=== PATIENT | male | born 1970 | race Caucasian/White ===

== ENCOUNTER 2016-11-02 16:01 | Emergency (ER) | payer OTHER ==
[~2016-11-02] VITALS: Ht 177.8 cm; Wt 75.0 kg
[~2016-11-02 16:01] MED LIST: AZIT250T94 PO; HYDR-3498 PO; IBUP-1542 PO; PROM6.25 PO; UDROBDM PO
[2016-11-02 16:14] VITALS: Ht 177.8 cm; Wt 75.0 kg
--- NOTE | 2016-11-02 17:18 | ERD ---
ER Documentation Chief Complaint Date/Time DATE: 11/02/16 TIME: 17:14 Chief Complaint LT LEG PAIN X 2 WEEKS , SENT BY PMD TO R/O DVT HPI This 46 year old male who presents to emergency department today complaining of some left flank pain for the past 2 weeks. Patient was seen by his primary care physician today and was sent here to the emergency department to rule out a DVT. States he is also given medication to treat a possible infection. She has had pain in his leg in the past after a accident. Patient denies any fevers or chills. Denies any new trauma. ROS All systems reviewed and are negative except as per history of present illness. Medications Home Meds Active Scripts Hydrocodone Bit-Acetaminophen* ([place]*) 5-325 Mg Tab, 1 TAB PO Q6 Y for PAIN, # 10 TAB Prov:FRANSICO GARCIA 02/10/16 Ibuprofen* (Motrin*) 600 Mg Tab, 600 MG PO Q6, #30 TAB Prov:FRANSICO GARCIA 02/10/16 Promethazine w/Codeine* (Phenergan w/Codeine* Syrup) 5 Ml Syrup, 10 ML PO Q4H Y for COUGH for 2 Days, ML Prov:MONICA BOOTH WATCHGUARD 11/27/15 Azithromycin* (Zithromax*) 250 Mg Tablet, 250 MG PO .ZPACK DIRECTED, #6 TAB TAKE 500 MG (2 TABS) THE FIRST DAY THEN 250 MG (1 TAB) DAYS 2-5 Prov:MONICA BOOTH WATCHGUARD 11/27/15 Guaifenesin-Dextromethorphan* (Robitussin* DM) 100MG/10MG/5ML Syrup, 10 ML PO Q4H Y for COUGH for 5 Days, ML Prov:MONICA BOOTH WATCHGUARD 11/08/15 Azithromycin* (Zithromax*) 250 Mg Tablet, 250 MG PO .ZPACK DIRECTED, #6 TAB TAKE 500 MG (2 TABS) THE FIRST DAY THEN 250 MG (1 TAB) DAYS 2-5 Prov:MONICA BOOTH WATCHGUARD 11/08/15 Allergies Allergies: Coded Allergies: No Known Allergy (Unverified , 01/06/15) PMhx/Soc History of Surgery: Yes (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 Neck: Full range of motion..~ No meningismus. Resp: Clear to auscultation bilaterally Cardio: Regular rate and rhythm, no murmurs Abd: Soft, non tender, non distended. Normal bowel sounds Skin: multiple areas of hyperpigmentation. Localized area of erythema anterior aspect left tibia approximately 6 cm. No streaking. Mild swelling. Pulses 2+. Distal neurovascularly intact. Back: No midline or flank tenderness Ext: No cyanosis, or edema Neur: Awake and alert Psych: Normal Mood and Affect Results 24 hrs DIAGNOSTIC IMAGING REPORT Patient: KARINA LUNA : 1970 Age: 46 Sex: M MR #: [id number] DOS: 11/02/16 0000 Ordering MD: BRAYAN DOMINGO PA-C Location: [facility] Room/Bed: PROCEDURE: US Lower extremity Venous. CLINICAL INDICATION: Pain and swelling TECHNIQUE: Multiple sonographic images of the left lower extremity deep venous system was obtained utilizing grayscale, color-flow, compressive sonography and doppler imaging with augmentation. The images were reviewed on a PACS workstation. COMPARISON: None. FINDINGS: There is normal compressibility and flow within the left common femoral, deep femoral, superficial femoral and popliteal veins. Normal phasicity and augmentation is identified Normal color flow and compressibility is noted in left posterior tibial and peroneal veins of the calf IMPRESSION: No sonographic evidence for left lower extremity deep venous thrombosis. RPTAT: HH .Francisco Javier Hairston MD, Date Time Electronically viewed and signed by .Francisco Javier Hairston MD, MD on 11/02/2016 17:46 .W/ CC: BRAYAN DOMINGO PA-C Procedures/[facility] This is a 46 year old male who presents to the emergency department today complaining of left leg pain for the past 2 weeks. Patient was seen by his primary care physician Dr. Prabhakar Young and and was sent here for further evaluation of DVT. I did obtain an ultrasound. Ultrasound left lower extremity shows no sonographic evidence for left lower extremity DVT. Patient does have some localized area of erythema and swelling. Patient was given a prescription for Keflex and Bactrim from his primary care physician today. I instructed the patient he needs to get that filled today to treat possible cellulitis. Patient is afebrile and otherwise well-appearing. I have low suspicion for sepsis, deep space infection. She denied any new trauma and I do not feel the patient requires an x-ray. Low suspicion for acute fracture dislocation. Patient may take his usual pain medication or medication prescribed by his primary care doctor. At this time the patient is stable for discharge and outpatient management. Patient should follow up with their PCP in the next 1-2 days. They may return to the emergency department sooner for any persistent or worsening of symptoms. Patient understood and agreed with the plan. Departure Diagnosis: Primary Impression: Pain of left leg Additional Impression: Cellulitis Site of cellulitis: extremity Site of cellulitis of extremity: lower extremity Laterality: left Qualified Code: L03.116 - Cellulitis of left lower extremity Condition: Fair BRAYAN DOMINGO PA-C Nov 02, 2016 17:17
--- NOTE | 2016-11-02 17:46 | RADRPT ---
PROCEDURE: US Lower extremity Venous. CLINICAL INDICATION: Pain and swelling TECHNIQUE: Multiple sonographic images of the left lower extremity deep venous system was obtained utilizing grayscale, color-flow, compressive sonography and doppler imaging with augmentation. The images were reviewed on a PACS workstation. COMPARISON: None. FINDINGS: There is normal compressibility and flow within the left common femoral, deep femoral, superficial f emoral and popliteal veins. Normal phasicity and augmentation is identified Normal color flow and compressibility is noted in left posterior tibial and peroneal veins of the ca lf IMPRESSION: No sonographic evidence for left lower extremity deep venous thrombosis. RPTAT: HH .Francisco Javier Hairston MD, MD Date Time Electronically viewed and signed by .Francisco Javier Hairston MD, on 11/02/2016 17:46 .W/
== END 2016-11-02 18:32 | disposition home or self-care (01) ==
LOC: FTE 16:01
DX: M79.605 Pain in left leg (principal); L03.116 Cellulitis of left lower limb; Z72.0 Tobacco use
CPT/HCPCS: 93971; Z7502

== ENCOUNTER 2016-12-29 10:57 | Emergency (ER) | payer SELFPAY ==
[~2016-12-29] VITALS: Ht 177.8 cm; Wt 78.0 kg
[2016-12-29 11:00] VITALS: Ht 177.8 cm; Wt 78.0 kg
[2016-12-29] MEDS ORDERED: AMOX1TAB10 PO (14:39)
[2016-12-29] MEDS ORDERED: NAPR-688 PO (14:39)
--- NOTE | 2016-12-29 14:48 | ERD ---
ER Documentation Chief Complaint Date/Time DATE: 12/29/16 TIME: 14:40 Chief Complaint dog bite 30 mins ago; right hand HPI This 46-year-old male presented emergency room for dog bite to the current approximate 30 minutes prior to ER arrival. He had his dog which is a pitbull and there was another dog barking and it through a fence with its log loader helper nearby. He tried to the stop the 2 dogs from harming each other and got a scratch on his right hand. No specific puncture wound. Is only on one side of the dorsum of his right hand along the lateral aspect dorsally. ROS All systems reviewed and are negative except as per history of present illness. Medications Home Meds Active Scripts Naproxen* (Naproxen*) 500 Mg Tablet, 500 MG PO BID Y for PAIN, #20 TAB Prov:SEAN BROOKS DO 12/29/16 Amoxicillin/Potassium Clav (Amox-Clav 875-125 mg Tablet) 875-125 mg Tab, 1 TAB PO BID, #20 TAB Prov:SEAN BROOKS DO 12/29/16 Hydrocodone Bit-Acetaminophen* ([place]*) 5-325 Mg Tab, 1 TAB PO Q6 Y for PAIN, # 10 TAB Prov:FRANSICO GARCIA C 02/10/16 Ibuprofen* (Motrin*) 600 Mg Tab, 600 MG PO Q6, #30 TAB Prov:FRANSICO GARCIA C 02/10/16 Promethazine w/Codeine* (Phenergan w/Codeine* Syrup) 5 Ml Syrup, 10 ML PO Q4H Y for COUGH for 2 Days, ML Prov:MONICA BOOTH NP 11/27/15 Azithromycin* (Zithromax*) 250 Mg Tablet, 250 MG PO .ZPACK DIRECTED, #6 TAB TAKE 500 MG (2 TABS) THE FIRST DAY THEN 250 MG (1 TAB) DAYS 2-5 Prov:MONICA BOOTH SENIOR RESEARCH EXECUTIVE 11/27/15 Guaifenesin-Dextromethorphan* (Robitussin* DM) 100MG/10MG/5ML Syrup, 10 ML PO Q4H Y for COUGH for 5 Days, ML Prov:MONICA BOOTH NP 11/08/15 Azithromycin* (Zithromax*) 250 Mg Tablet, 250 MG PO .ZPACK DIRECTED, #6 TAB TAKE 500 MG (2 TABS) THE FIRST DAY THEN 250 MG (1 TAB) DAYS 2-5 Prov:MONICA BOOTH NP 11/08/15 Allergies Allergies: Coded Allergies: No Known Allergy (Unverified , 01/06/15) PMhx/Soc History of Surgery: Yes (2014 remove tumor right arm;2005 remove adrenal cyst) Anesthesia Reaction: No Hx Neurological Disorder: No Hx Respiratory Disorders: No Hx Cardiac Disorders: No Hx Psychiatric Problems: No Hx Miscellaneous Medical Probl: No Hx Alcohol Use: No Hx Substance Use: No Hx Tobacco Use: Yes Physical Exam Vitals Vital Signs Date Time Temp Pulse Resp B/P Pulse Ox O2 Delivery O2 Flow Rate FiO2 12/29/16 11:00 98.4 87 18 146/73 98 Physical Exam Const: [] No distress ENT: Normal External Ears, Nose and Mouth. Ext: No cyanosis, 3 cm superficial scratch along the dorsal aspect in between the fourth and fifth metacarpal of the right hand. Very slight swelling surrounding the lesion. No active bleeding. Capillary refill less than 1 second distally. No volar injury. Motor intact all fingers. No tenderness to palpation along for the fifth metacarpal, no deformities or abnormal textures. Neur: Awake and alert sensation intact all aspects of right hand Psych: Normal Mood and Affect Results 24 hrs Current Medications Medications (Trade) Dose Ordered Sig/David Route PRN Reason Start Time Stop Time Status Last Admin Dose Admin Diphtheria/ Tetanus/Acell Pertussis (Adacel) 0.5 ml ONCE ONCE IM* 12/29/16 15:00 12/29/16 15:01 Acetaminophen/ Hydrocodone Bitart ([place] (5/325)) 1 tab ONCE ONCE PO 12/29/16 15:00 12/29/16 15:01 Procedures/MDM Dog bite which is a scratch lesion. No tenderness along the metacarpal bones involved, no deformities of fractures unlikely. Patient agrees. Give him a [place] tablet in the emergency room. Also a tetanus shot. No discharge him with Augmentin as well as naproxen for pain. Having him return in 3 days if he has any continued pain because in that case I would like to get the x-ray of his hand. Primary care follow-up in the next 2-3 days otherwise. Departure Diagnosis: Primary Impression: Dog bite of hand Condition: Stable Patient Instructions: Dog Bite Additional Instructions: Call your primary care doctor TOMORROW for an appointment during the next 2-3 days. If continued pain in 3 days return to ER for further evaluation and Xray. See the doctor sooner or return here if your condition worsens before your appointment time. SEAN BROOKS DO Dec 29, 2016 14:48
[2016-12-29] MEDS ORDERED: DIPHTH/TET/ACEL PERTUSS (ADULT) 0.5 ML VIAL IM* ONE (15:00)
[2016-12-29] MEDS ORDERED: HYDROCODONE/APAP (5/325) TAB PO ONE (15:00)
== END 2016-12-29 15:12 | disposition home or self-care (01) ==
LOC: FTE 10:57
DX: S61.254A Open bite of right ring finger without damage to nail, initial encounter (principal); S61.256A Open bite of right little finger without damage to nail, initial encounter; W54.0XXA Bitten by dog, initial encounter; Y92.9 Unspecified place or not applicable; Z23 Encounter for immunization; Z87.891 Personal history of nicotine dependence
CPT/HCPCS: 90471; 90715